=== PATIENT | female | born 1985 | race African-American/Black ===

== ENCOUNTER 2019-07-17 00:10 | Emergency (ER) | payer OTHER ==
--- NOTE | 2019-07-17 00:17 | PDOC ---
Attending Attestation - Resident Resident Name: Blair Weiner - ED Attending Attestation I have performed the following: I have examined & evaluated the patient, The case was reviewed & discussed with the resident, I agree w/resident's findings & plan - HPI HPI: 07/17/19 00:34 Pt is 12 weeks and she had some abd pain today earlier; she had a miscarriage at home prior to arrival. She is She is a smoker and she drinks alcohol Pt had a exam due this coming thursday No PMHx 07/17/19 01:41 Pt comes with EMS and they brought the fetus and placenta along. We will send it to the lab. - Physicial Exam PE: 07/17/19 00:35 Agree with resident exam 07/17/19 01:44 Pt has normal abdomen; minimal vag bleeding at this time. No flank pain Pt is afebrile and she appears well She has some alcohol on her breath, but she is sober and not slutrring speech and has no difficulty walking and a normal neuro exam - Medical Decision Making 07/17/19 01:43 Pt is in no pain and she wants to go home. SHe is refusing to remain in the ER. 07/17/19 01:43 She doesn't want to wait for her Type and Screen and she is refusing to allow us to do a vag exam. We are still awaiting results of the sono; pt understands that she may have retained products; she has been counseled that the HCG needs to be followed to zero. 07/17/19 02:10 Patient Name: MATT SMILEY THIS IS A PRELIMINARY REPORT FROM [facility] DATE OF SERVICE: 2019-07-17 00:50:22 IMAGES: 19 EXAM: TRANSVAGINAL ULTRASOUND US HISTORY: Recent miscarriage. Rule out retained products COMPARISON: None. FINDINGS: Uterus is anteverted and measures 14.5 cm in length. Endometrium is thickened at 2.5 cm slightly heterogeneous with some foci of hypervascularity which does suggest retained products. Ovaries not visualized. No free fluid. IMPRESSION: Suspected retained product of conception which can be correlated with beta hCG level. 07/17/19 04:03 Blood type is Opos; no need to call pt back for rhogam
[2019-07-17 00:20] VITALS: BP 130/90; PULSE 110; BMI 40.7
[2019-07-17 00:43] VITALS: TEMP 98.3
[2019-07-17 00:49] LABS: BASO % 0.5 % (0-2.0); EOS % 1.5 % (0-4.5); HEMATOCRIT 31.8 % (32.4-45.2); HEMOGLOBIN 10.7 GM/dL (10.7-15.3); LYMPH % 20.4 % (8-40); MCH 29.6 pg (25.7-33.7); MCHC 33.8 g/dl (32.0-36.0); MEAN CELL VOLUME 87.6 fl (80-96); MEAN PLT VOLUME 9.6 fl (7.5-11.1); MONO % 8.1 % (3.8-10.2); NEUT % 69.5 % (42.8-82.8); PLATELET COUNT 213 K/MM3 (134-434); RBC 3.63 M/mm3 (3.60-5.2); RDW 14.4 % (11.6-15.6); WHITE BLOOD COUNT 13.4 K/mm3 (4.0-10.0)
--- NOTE | 2019-07-17 00:51 | PDOC ---
History of Present Illness - General Chief Complaint: Vaginal Bleeding Stated Complaint: MISCARRIAGE Time Seen by Provider: 07/17/19 00:15 History Source: Patient Exam Limitations: No Limitations - History of Present Illness Initial Comments: 07/18/19 06:40 HPI: 33F w/o PMH BIBEMS after miscarriage. Pt felt urge to have a BM since 15:00. 05/26. Around 22:30 pt felt an increased sensation and passed the fetus. EMS arrived clamped umbilical cord states placenta was delivered 15 mins after. Pt states she was approximately 3 months , LMP end of April. Denies f/c, n /v, cp/sob, lightheadedness, dizziness. Endorses smoking 7 cigarettes daily, 1 glass of wine weekly, and denies drug use. 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 Past History - Past Medical History Allergies/Adverse Reactions: Allergies Allergy/AdvReac Type Severity Reaction Status Date / Time diphenhydramine Allergy Verified 07/17/19 00:20 [From Benadryl] - Psycho Social/Smoking Cessation Hx Smoking History: Current some day smoker Number of Cigarettes Smoked Daily: 7 Information on smoking cessation initiated: No Hx Alcohol Use: No Drug/Substance Use Hx: No Review of Systems - Review of Systems Able to Perform ROS?: Yes Comments:: 07/18/19 06:40 ROS: CONSTITUTIONAL: Denies F / C HEENT: Denies headache, lightheadedness, dizziness, changes in vision / hearing , diplopia, blurry vision. RESP: Denies SOB, cough CARD: Denies chest pain, palpitations GI: Denies N / V / D, abdominal pain, inability to tolerate PO SKIN: Denies rashes NEURO: Denies numbness, tingling, weakness Is the patient limited [place] proficient: No *Physical Exam - Vital Signs Last Vital Signs Temp Pulse Resp BP Pulse Ox 110 H 18 130/90 100 07/17/19 00:16 07/17/19 00:16 07/17/19 00:16 07/17/19 00:16 - Physical Exam Comments: 07/18/19 06:41 PE: GEN: NAD, AAOx3. HEENT: NC/AT. No facial asymmetry. Normal voice. Supple neck w/ FROM. CV: S1/S2, RRR, no m/r/g LUNG: CTAB, no wheezes, crackles, rales, rhonchi. GI: soft, ndnt, +BS, no guarding, no rebound. No masses. EXTREMITIES: No LE edema. No obvious deformities of all extremities. SKIN: warm, dry, normal turgor PSYCH: Hostile. NEURO: Moving all extremities well. MACHINE RECORDS UNITS SUPERVISOR: deferred ED Treatment Course - LABORATORY CBC & Chemistry Diagram: 07/17/19 00:39 Medical Decision Making - Medical Decision Making 07/17/19 00:39 MDM: 33F s/p miscarriage, LMP end of april. Asymptomatic. Pt states she is still bleeding. - CBC, B-hCG, T&S - UA - TVUS - MACHINE RECORDS UNITS SUPERVISOR exam deferred until further hemostasis - parts and placenta sent to pathology 07/17/19 01:30 Patient requested to leave AMA, refused evaluation and treatment of miscarriage. Patient is determined to be of sound mind and reasoning. The patient fully understands the care they are refusing and the risks associated with leaving before complete medical evaluation as explained by the medical team. The patient has been provided with a discharge summary, return precautions, and the reassurance that the Emergency Department will resume workup if the patient changes their mind. Immediate primary care follow up has been urged. Discharge - Discharge Information Problems reviewed: Yes Clinical Impression/Diagnosis: Miscarriage Condition: Unchanged/Unknown Disposition: AGAINST MEDICAL ADVICE - Follow up/Referral - Patient Discharge Instructions Patient Printed Discharge Instructions: DI for Miscarriage Additional Instructions: You are leaving against medical advice and refused evaluation and treatment of miscarriage. All risks been explained to you. You are free to return to the Emergency Department to complete your evaluation, if you change your mind. ' SEE YOUR RESTRICTIVE PREPARATION OPERATOR WITHIN 24 HOURS. Immediately return to the Emergency Department if you experience: - heavy bleeding - chest pain, shortness of breath - lightheadedness - fevers - ANYTHING that concerns you - Post Discharge Activity
--- NOTE | 2019-07-22 18:23 | PATH ---
Surgical Pathology Report Patient Name: MATT SMILEY [facility]. Rec. #: [id number] /Age/Gender: 1985 (Age: 33) / F Account: [id number] Location: EMERGENCY ROOM Taken: 07/17/2019 Received: 07/18/2019 Reported: 07/22/2019 Physicians: Kamilla Szymanski MD Specimen(s) Received A: FETUS B: PLACENTA Clinical History Miscarriage Final Diagnosis A. FETUS, GROSS EXAMINATION: 540 G, PHENOTYPICALLY FEMALE FETUS. CROWN TO RUMP LENGTH, 20 CM. CROWN TO HEEL LENGTH, 29 CM. FOOT LENGTH, 4.3 CM. SKIN WITH MILD MACERATION. BILATERAL HANDS WITH POLYDACTYLY. ATTACHED UMBILICAL CORD WITH TRUE KNOT. B. PLACENTA, DELIVERY: 145 G SECOND TRIMESTER PLACENTA WITH TRIVASCULAR UMBILICAL CORD AND UNREMARKABLE PLACENTAL MEMBRANES. Electronically Signed Cate Stoddard M.D. Gross Description A. Received fresh, labeled with the patient's name and indicated on the requisition to be a fetus, is a 540 g intact fetus measuring 20 cm from crown to rump and 29 cm from crown to heel. Each foot measures 4.3 cm from toe to heel. Head circumference is 19.5 cm. Chest circumference is 16 cm. Abdominal circumference is 14 cm. The attached umbilical cord measures 20 cm in length and averages 0.7 cm in diameter. There is a true knot present in the umbilical cord. The eyelids are fused shut. The nares and anus are patent. The lumbosacral spine is intact. The extremities appear normal and well proportioned, without any bony defects. The fetus displays polydactyly on both hands (6 digits on each hand). Each foot displays 5 digits. There is meconium present. The external genitalia are well formed and that of a female. The skin is mildly macerated. No sections are submitted, gross only. B. Received fresh, labeled with the patient's name and indicated on the requisition to be a placenta, is a 145 g, 14.5 x 10.0 x 1.9 cm placenta with attached membranes and umbilical cord. The membranes are chavira, translucent with focal opacities and insert marginally. The umbilical cord measures 17.5 cm in length and averages 0.7 cm in diameter. The cord inserts centrally. No true knots or strictures are identified. Cut surface of the umbilical cord reveals 3 vessels. The surface is bowers blue with minimal fibrin deposition and appropriate caliber vessels. The maternal surface is red-brown and intact. Sectioning reveals chavira-red, spongy parenchyma. No lesions are identified. Shotblaster sections are submitted in 3 cassettes as follows: 1-membrane roll and umbilical cord; 2-2-okwk-thickness sections of placenta. 07/18/2019 [facility]07/18/2019
== END 2019-07-17 01:57 | disposition left against medical advice (07) ==
LOC: JER 00:10
DX: O26.891 Other specified pregnancy related conditions, first trimester (principal); O03.9 Complete or unspecified spontaneous abortion without complication; Z3A.12 12 weeks gestation of pregnancy
CPT/HCPCS: 36415; 76830-TC; 84702; 85025; 86850; 86900; 86901; 88300-TC; 88307-TC; 99283-25